=== PATIENT | female | born 1995 | race African-American/Black ===

== ENCOUNTER → 2016-08-01 | Outpatient (CLI) | payer OTHER ==
[~2016-08-01] MED LIST: Z.0.NO CURRENT MEDS
== END ==
LOC: HPND 12:48
PROVIDERS: ATTEND Obstetrics & Gynecology
DX: O24.410 Gestational diabetes mellitus in pregnancy, diet controlled (principal); O28.0 Abnormal hematological finding on antenatal screening of mother
CPT/HCPCS: 76816; 76825; 76827; 93325

== ENCOUNTER → 2016-08-30 | Outpatient (CLI) | payer OTHER | LOC: HPND 10:20 | PROVIDERS: ATTEND Obstetrics & Gynecology | DX: O24.410 Gestational diabetes mellitus in pregnancy, diet controlled (principal); O28.0 Abnormal hematological finding on antenatal screening of mother | CPT/HCPCS: 76816 ==

== ENCOUNTER → 2016-09-29 | Outpatient (CLI) | payer OTHER | LOC: HPND 09:54 | PROVIDERS: ATTEND Obstetrics & Gynecology | DX: O24.919 Unspecified diabetes mellitus in pregnancy, unspecified trimester (principal) | CPT/HCPCS: 76816 ==